=== PATIENT | female | born 1950 | race Caucasian/White ===

== ENCOUNTER 2019-08-28 09:33 | Inpatient (IN) | payer OTHER ==
[~2019-08-28] VITALS: Ht 157.5 cm; Wt 49.2 kg
[2019-08-28] VITALS (7 sets, daily range): BP systolic 128–182; BP diastolic 65–89
--- NOTE | ~2019-08-28 | HC ---
[facility] [place] [address] CONSULTATION Name: KIERAN LUZ Room #: 214-P ADM IN M.R.#: [id number] Admission: 08/28/19 Attend Phys: Anatoly Muniz MD Discharge: Date of : 52 Report #: [id number] THIS REPORT FOR: //name// CC: Shola Heeen Maddie DATE OF SERVICE: 08/28/2019 SUBJECTIVE: This is a 69-year-old female patient on whom I cannot get a good history. It is difficult to keep the patient focused on one subject. I do not know whether that is her baseline or whether this happened after this episode. She said she had some headache. She had some rubbing alcohol on her forehead. She fell down. There was some seizure activity noticed, which she said was on the left side and Neurology consultation is being requested for that seizure activity on the right side. History is pretty poor. REVIEW OF SYSTEMS: Indicate the patient did not have this kind of symptoms before. She denies any prior history of stroke. She was noticed to have a question of facial droop. She says she has some hypertension, but her blood pressure stays controlled. A 14-point review of system was carried out. The patient was not complaining of any new eye, ENT, cardiac, respiratory, GI, , musculoskeletal, constitutional, dermatological, hematological, psychiatric, throat, allergic symptom associated with present symptomatology. PAST MEDICAL HISTORY: Negative for any stroke. FAMILY HISTORY: Negative for any early age CVA. SOCIAL HISTORY: She said she smokes. She drinks two alcoholic drinks a day. PHYSICAL EXAMINATION: Indicate that this patient is alert, responsive, able to follow simple and complex command. She is oriented. Cranial nerve examinations appear unremarkable. There is no meningeal sign. There is no neck tenderness. She has a good strength, sensation and reflexes in all 4 extremities. She does not appear to have any cerebellar sign. There is no meningeal sign in this patient. I could not look at the fundus. Cardiac examinations appear unremarkable. No respiratory difficulty was noted. No edema was noted. She did have a CT angiogram of the head and neck and that does show some atherosclerotic disease, but nothing hemodynamically significant stenosis. Her MRI is ordered, but is not done yet. IMPRESSION: This patient appeared to have a seizure. Her liver functions are elevated. I suspect she may be drinking more alcohol than she is admitting. If that is the case, the seizure may be related to that. We need to exclude any [facility] [address] [place] [address] CONSULTATION Name: KIERAN LUZ Room #: [address] [place] [address] [place] ..#: [id number] Admission: 08/28/19 Attend Phys: Anatoly Muniz MD Discharge: Date of : 52 Report #: [id number] other etiology. I told her that irrespective of what her workup show she should not drink alcohol because she had a seizure. She was definitely drinking more alcohol than 1 alcoholic drink, which is acceptable for the women by the ____ recommendation, but she may have been drinking more than that. I will ask the radiologist to review the CT angiogram with me because this should have had good pictures of the patient's spine as well as the venous sinuses. She is not having any symptoms in that regard, but we will try to review it with the radiologist tomorrow. She got a dose of Keppra. I will check the EEG and I will check the MRI. We may watch her without seizure, but she need to take seizure precautions and she cannot drive for 6 months. All of it was discussed with the patient in detail on 2 separate occasions. Time spent was about 50 minutes, majority counseling and coordinating. Dr. Eric will follow up this patient with you from tomorrow. By: 05 24 Bakari Perkins MD /nt
--- NOTE | ~2019-08-28 | EEG ---
[facility] [place] [address] [place] [address] ELECTROENCEPHALOGRAM Name: KIERAN LUZ Room #: 214-P ADM IN M.R.#: [id number] Admission: 08/28/19 Attend Phys: Anatoly Muniz MD Discharge: Date of : 52 Report #: [id number] THIS REPORT FOR: //name// CC: Shola Perkins DATE OF SERVICE: 08/28/2019 This patient is admitted after an episode of seizure. EEG was done by placing the electrode by standard 10-20 system of electrode placement. Both referential and sequential montages were used for recording. Background activity in this patient's EEG is about 10 Hz and 30 microvolts. The patient went to sleep that is associated with bilaterally symmetrical sleep spindle and vertex sharp waves. Photic stimulation was unremarkable. Throughout the record, no active epileptiform activity was noticed. IMPRESSION: This patient's EEG is within normal limits. Thank you very much for this referral. By: 4 Bakari Perkins MD /nt
[2019-08-28 10:05] LABS: ABSOLUTE NEUTROPHILS 12.8 thou/uL (1.4-8.2); BASOPHILS 0.6 % (0.0-2.0); HEMATOCRIT 43.5 % (37.0-47.0); HEMOGLOBIN 14.9 gm/dL (12.0-15.0); LYMPHOCYTES 2.5 % (24.0-44.0); MCH 34.3 pg (26.0-34.0); MCHC 34.3 g/dL (28.0-37.0); MCV 99.8 fL (80.0-100.0); MONOCYTES 5.2 % (1.0-8.0); PLATELET COUNT 191 thou/uL (150-400); POLYS 91.7 % (36.0-66.0); RBC 4.36 mil/uL (4.20-5.00); RDW 12.5 % (10.5-14.5)
[2019-08-28 10:06] LABS: ANION GAP 11 mmol/L (7-16); BUN 10 mg/dL (7-18); CALCIUM 9.9 mg/dL (8.5-10.1); CHLORIDE 100 mmol/L (98-107); CO2 27 mmol/L (21-32); CREATININE 0.8 mg/dL (0.6-1.0); GLUCOSE 181 mg/dL (74-106); POTASSIUM 3.5 mmol/L (3.5-5.1); SODIUM 138 mmol/L (136-145)
[2019-08-28 10:12] LABS: APTT 26.7 Seconds (24.5-32.8); PROTIME 10.3 Seconds (9.3-11.4)
[2019-08-28 10:16] LABS: SGOT 55 U/L (15-37); SGPT 72 U/L (30-65); TOTAL PROTEIN 7.9 g/dL (6.4-8.2)
[2019-08-28 10:18] LABS: TROPONIN-I <0.06 ng/mL (<0.06)
[2019-08-28 10:58] LABS: URINE BLOOD NEGATIVE (Negative); URINE CLARITY CLEAR; URINE COLOR YELLOW; URINE GLUCOSE-RANDOM* NEGATIVE (Negative); URINE KETONES 2+ (Negative); URINE LEUKOCYTES-REFLEX TRACE (Negative); URINE NITRITE-REFLEX NEGATIVE (Negative); URINE PROTEIN (DIPSTICK) 2+ (Negative); URINE SPECIFIC GRAVITY >= 1.030 (1.005-1.035); URINE UROBILINOGEN 0.2 E.U./dl (0.2-1.0)
[2019-08-28 11:02] LABS: ICTOTEST (BILI CONFIRMATORY) Negative (Negative); URINE BILIRUBIN NEGATIVE (Negative)
[2019-08-28 11:06] LABS: SQUAMOUS 0-3 Few /LPF (0-3); URINE WBC-REFLEX 6-15 Few /HPF (0-5)
[2019-08-28 11:07] LABS: CASTS None Seen /LPF (None Seen); CRYSTALS None Seen /LPF (None Seen); URINE RBC None Seen /HPF (0-2)
--- NOTE | 2019-08-28 17:00 | NUR ---
PT CARE ASSUMED APPROX 1415. ASSESSMENTS CHARTED. DENIES PAIN AND SOA. VSS. UP WITH SBA. PT STILL INTERMITTENTLY CONFUSED. SPOUSE AT BEDSIDE FOR BRIEF PERIOD AND ASSISTED WITH ADMISSION. FALL PRECAUTIONS IN PLACE. PT AND SPOUSE GIVEN CLINICAL UPDATE WITH POC. BOTH DENY QUESTIONS OR CONCERNS REGARDING POC. PT REPORTS THAT SHE WILL FIND A WAY TO LEAVE UNIT AND SMOKE. THIS NURSE ADVISED OTHERWISE AND EDUCATED. SHE WAS VERBALLY AGREEABLE. WILL MONITOR.
[2019-08-29 04:03] LABS: HEMATOCRIT 42.6 % (37.0-47.0); HEMOGLOBIN 14.4 gm/dL (12.0-15.0); MCH 33.9 pg (26.0-34.0); MCHC 33.9 g/dL (28.0-37.0); MCV 100.1 fL (80.0-100.0); RBC 4.26 mil/uL (4.20-5.00); RDW 12.6 % (10.5-14.5); WBC 8.4 thou/uL (4.0-11.0)
--- NOTE | 2019-08-29 04:11 | NUR ---
PT ALERT AND ORIENTED. DENIES CHEST PAIN. REPORTS MILD HEADACHE , BUT TOLERABLE. SCHEDULED MRI THIS AM. PT SMOKED IN THE BATHROOM. CURRICULUM WRITER AND CIGARETTE SENT TO SECURITY. PT WAS DECLINE NICOTINE PATCH. NO FURTHER C/O. UP WITH STAND BY ASSIST. VOIDING IN BATHROOM. WILL CONTINUE WITH POC.
[2019-08-29 04:20] LABS: CALCIUM 8.8 mg/dL (8.5-10.1); CREATININE 0.4 mg/dL (0.6-1.0)
[2019-08-29 04:41] VITALS: BP 169/86
[2019-08-29 07:30] VITALS: BP 182/83
[2019-08-29 11:33] VITALS: BP 140/66
[2019-08-29] MEDS ORDERED: NICOTINE TRANSD14 M1 TRANSDERM (15:58)
[2019-08-29] MEDS ORDERED: ASPIR 8181 M1 PO (15:58)
[2019-08-29] MEDS ORDERED: LIPITOR10 MG PO (15:58)
[2019-08-29 16:03] VITALS: BP 196/84
[2019-08-29] MEDS ORDERED: NORVASC10 MG PO (16:05)
[2019-08-29] MEDS ORDERED: KEFLEX500 M2 PO (16:05)
[2019-08-29 16:12] VITALS: BP 196/84
[2019-08-29 16:20] VITALS: BP 196/84
--- NOTE | 2019-08-29 16:56 | NUR ---
PT CARE ASSUMED APPROX 0700. ASSESSMENT CHARTED. DENIES PAIN AND SOA. VSS WITH BP ELEVATED. DR GIBBS WAS AWARE. PT DISCHARGED AT THIS TIME. MRI RESULTS WERE SATISFACTORY TO DR GIBBS FOR DISMISSAL. PT EDUCATED ON NEW MEDS AND IMPORTANCE OF MED COMPLIANCE. DISCHARGE PAPERWORK REVIEWED AND PT DENIED QUESTIONS AND CONCERNS REGARDING POST HOSPTIAL CARE. IV OUT, TELE BOX OFF. SBP ELEVATED PRIOR TO LEAVING AND DR GIBBS ORDERED NEW MED. PT TOOK MED AGREEABLY BUT REFUSED TO WAIT FOR REASSESSMENT OF BP. FAMILY PRESENT TO TAKE PT HOME. HOSPITAL STAFF ESCORTED PT OUT.
--- NOTE | 2019-08-29 17:05 | NUR ---
Pt dc'd to home this evening. She denied any dc needs or concerns to nursing and anticipates traveling to [place] tomorrow to be with family there over the holiday. Pt has a sign other here that she lives with. She did work with therapy today. No cm needs identified. Case not opened.
--- NOTE | 2019-09-01 12:52 | EKG ---
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: [facility] : 1950 Requested By: Arsen Schwartz Order Number: [id number] MD: Jameson Pate Measurements Intervals [place] Rate: 117 P: 82 CT: 131 QRS: 61 QRSD: 90 T: 22 QT: 312 QTc: 436 Interpretive Statements Sinus tachycardia Atrial premature complex Left atrial enlargement Abnormal inferior Q waves Anterior infarct, old No previous ECG available for comparison Electronically Signed On 09-01-2019 12:51:39 [employer]UED [employer]OD [employer] by Jameson Pate [email or web address] <ELECTRONICALLY SIGNED> By: Jameson Pate MD 09/01/19 1251 5 Jameson Pate MD /EPI
== END 2019-08-29 16:46 | disposition home or self-care (01) | DRG 69 ==
LOC: ER 09:33 → EROBS 13:37 → 2N 13:37 → ENTRNSPT 08-29 16:27 → 2N 08-29 16:46
PROVIDERS: Emergency Medicine; ADMIT Hospitalist
DX: G45.9 Transient cerebral ischemic attack, unspecified (principal); R29.810 Facial weakness; F17.210 Nicotine dependence, cigarettes, uncomplicated; Z79.899 Other long term (current) drug therapy
CPT/HCPCS: 10081